=== PATIENT | female | born 1995 | race African-American/Black ===

== ENCOUNTER 2018-03-02 14:50 | Observation (INO) | payer OTHER ==
[~2018-03-02] VITALS: Ht 165.1 cm; Wt 83.0 kg
[~2018-03-02 14:50] MED LIST: FOLI1TAB19 PO; PREN-385 PO
[2018-03-02] MEDS ORDERED: TERBUTALINE 1 MG/ML VIAL SUBQ ONE (15:25)
[2018-03-02 15:31] VITALS: BP 119/77
[2018-03-02] MEDS ORDERED: TERBUTALINE 1 MG/ML VIAL SUBQ SCH (17:20)
[2018-03-02] MEDS ORDERED: LACTATED RINGERS 1,000 ML IV SCH (17:25)
[2018-03-02] MEDS ORDERED: BETAMETH ACET/BETAMETH NA PH 30 MG/5 ML VIAL IM ONE (17:56)
[2018-03-02] MEDS ORDERED: TERBUTALINE 2.5 MG TAB ONE (20:55)
[2018-03-02] MEDS ORDERED: TERBUTALINE 2.5 MG TAB PO SCH (21:00)
[2018-03-02] MEDS ORDERED: BETAMETH ACET/BETAMETH NA PH 30 MG/5 ML VIAL IM SCH (21:00)
[2018-03-02] MEDS ORDERED: INFLUENZA VIRUS VACCINE QUAD 0.5 ML SYR IMVAC PRN (22:00)
[2018-03-03] MEDS ORDERED: TERBUTALINE 1 MG/ML VIAL SUBQ ONE (00:25)
== END 2018-03-03 01:10 | disposition left against medical advice (07) ==
LOC: MLD 14:50
PROVIDERS: ADMIT Obstetrics & Gynecology; ATTEND Obstetrics & Gynecology
DX: O26.893 Other specified pregnancy related conditions, third trimester (principal); R10.9 Unspecified abdominal pain; O47.03 False labor before 37 completed weeks of gestation, third trimester; Z3A.35 35 weeks gestation of pregnancy
CPT/HCPCS: 36415; 51702; 76805; 81000; 85379; 96372; G0378; J0702; J3105; J7120; Q0092

== ENCOUNTER 2018-10-23 14:15 | Emergency (ER) | payer OTHER ==
[~2018-10-23] VITALS: Ht 162.6 cm; Wt 77.1 kg
[2018-10-23 14:16] VITALS: BP 121/62
--- NOTE | 2018-10-23 15:00 | NUR ---
PT PRESENTS TO ED WITH C/O VAGINAL BLEEDING; REPORTS HAVING AN IN JUNE AND UNCONTROLLED BLEEDING SINCE THEN. +NAUSEA, +BLURRY VISION, AND +DIZZINESS. DENIES VOMITING, DIARRHEA OR FEVER. MED HX: UMBILICAL HERNIA.
--- NOTE | 2018-10-23 15:10 | NUR ---
DR TAYLOR AT BEDSIDE EVALUATING PT.
[2018-10-23] MEDS ORDERED: IBUPROFEN 600 MG TAB PO ONE (15:20)
[2018-10-23] MEDS ORDERED: METOCLOPRAMIDE 10 MG/2 ML INJ VIAL IM ONE (15:20)
--- NOTE | 2018-10-23 15:39 | NUR ---
ULTRASOUND AT BEDSIDE
--- NOTE | 2018-10-23 15:50 | NUR ---
LAB AT BEDSIDE
--- NOTE | 2018-10-23 15:59 | NUR ---
PT REFUSED MEDICATION REGLAN; DR TAYLOR INFORMED.
[2018-10-23 16:01] LABS: BASOPHILS % (AUTO) 0.2 % (0.0-2.0); EOSINOPHILS # (AUTO) 0.1 K/uL (0-0.4); EOSINOPHILS % (AUTO) 1.6 % (0.0-4.0); HEMATOCRIT 39.8 % (36-48); HEMOGLOBIN 13.3 g/dL (12.0-16.0); LYMPHOCYTES # (AUTO) 1.3 K/uL (2.5-16.5); LYMPHOCYTES % (AUTO) 21.8 % (20.5-51.1); MEAN CORPUSCULAR HEMOGLOBIN 30 pg (27-31); MEAN CORPUSCULAR HGB CONC 33 g/dL (33-37); MEAN CORPUSCULAR VOLUME 89.4 fL (80-94); MONOCYTES # (AUTO) 0.3 K/uL (0.8-1.0); MONOCYTES % (AUTO) 5.1 % (1.7-9.3); NEUTROPHILS # (AUTO) 4.3 K/uL (1.8-7.7); NEUTROPHILS % (AUTO) 71.3 % (42.2-75.2); PLATELET COUNT (AUTO) 234 K/uL (140-450); RED BLOOD CELL COUNT(AUTO) 4.45 MIL/uL (4.20-5.40); RED CELL DISTRIBUTION WIDTH 12.7 % (11.6-13.7)
[2018-10-23 16:15] LABS: ALBUMIN 4.3 g/dL (3.4-5.0); ANION GAP 9.4 (8-16); CARBON DIOXIDE 28.6 mmol/L (21-32); TOTAL BILIRUBIN 0.8 mg/dL (0.0-1.0)
[2018-10-23 17:31] VITALS: BP 119/61
--- NOTE | 2018-10-23 17:33 | NUR ---
Patient discharged with v/s stable. Written and verbal after care instructions given and explained. Patient alert, oriented and verbalized understanding of instructions. Ambulatory with steady gait. All questions addressed prior to discharge. ID band removed. Patient advised to follow up with PMD. Rx of PROVERA given. Patient educated on indication of medication including possible reaction and side effects. Opportunity to ask questions provided and answered.
== END 2018-10-23 17:33 | disposition home or self-care (01) ==
LOC: MED 14:15
DX: N93.9 Abnormal uterine and vaginal bleeding, unspecified (principal); R51 Headache; R07.9 Chest pain, unspecified; H53.8 Other visual disturbances; Z79.899 Other long term (current) drug therapy; Z98.890 Other specified postprocedural states
CPT/HCPCS: 36415; 76830; 80053; 81025; 85025; 93976; 99284; Q0092; J2765

== ENCOUNTER 2020-09-03 14:29 | Observation (INO) | payer OTHER, SELFPAY ==
[~2020-09-03] VITALS: Ht 162.6 cm; Wt 102.1 kg
[2020-09-03 15:41] VITALS: BP 121/66
== END 2020-09-03 20:20 | disposition home or self-care (01) ==
LOC: MLD 14:29
PROVIDERS: ADMIT Obstetrics & Gynecology; ATTEND Obstetrics & Gynecology
DX: O62.9 Abnormality of forces of labor, unspecified (principal); O99.891 Other specified diseases and conditions complicating pregnancy; H53.8 Other visual disturbances; O26.893 Other specified pregnancy related conditions, third trimester; R82.998 Other abnormal findings in urine; Z3A.37 37 weeks gestation of pregnancy
CPT/HCPCS: 76815; G0378

== ENCOUNTER 2020-09-04 02:37 | Inpatient (IN) | payer OTHER, SELFPAY ==
[~2020-09-04] VITALS: Ht 162.6 cm; Wt 102.1 kg
[2020-09-04] MEDS ORDERED: PROMETHAZINE 25 MG/ML VIAL IVP PRN (02:50)
[2020-09-04] MEDS ORDERED: LACTATED RINGERS 1,000 ML IV SCH (02:50)
[2020-09-04] MEDS ORDERED: METHYLERGONOVINE 0.2 MG/ML AMP IM PRN (02:50)
[2020-09-04] MEDS ORDERED: CARBOPROST 250 MCG/ML AMP IM PRN (02:50)
[2020-09-04] MEDS ORDERED: NALBUPHINE 10 MG/ML AMP ONE (03:15)
[2020-09-04] MEDS ORDERED: OXYTOCIN 20 UNITS in LACTATED RINGERS 1,000 ML IV SCH (03:30)
[2020-09-04] MEDS ORDERED: ONDANSETRON 4 MG/2 ML VIAL IVP PRN (03:30)
[2020-09-04] MEDS ORDERED: NALBUPHINE 10 MG/ML AMP IVP SCH (03:30)
[2020-09-04 03:36] LABS: BASOPHILS # (AUTO) 0.1 K/uL (0.00-0.22); BASOPHILS % (AUTO) 0.7 % (0.0-2.0); EOSINOPHILS # (AUTO) 0.1 K/uL (0-0.4); EOSINOPHILS % (AUTO) 0.6 % (0.0-4.0); HEMATOCRIT 36.2 % (36-48); HEMOGLOBIN 12.4 g/dL (12.0-16.0); LYMPHOCYTES # (AUTO) 2.2 K/uL (2.5-16.5); LYMPHOCYTES % (AUTO) 21.8 % (20.5-51.1); MEAN CORPUSCULAR HEMOGLOBIN 29 pg (27-31); MEAN CORPUSCULAR HGB CONC 34 g/dL (33-37); MEAN CORPUSCULAR VOLUME 84.4 fL (80-94); MONOCYTES # (AUTO) 0.7 K/uL (0.8-1.0); MONOCYTES % (AUTO) 6.7 % (1.7-9.3); NEUTROPHILS # (AUTO) 7.2 K/uL (1.8-7.7); NEUTROPHILS % (AUTO) 70.2 % (42.2-75.2); PLATELET COUNT (AUTO) 135 K/uL (140-450); RED BLOOD CELL COUNT(AUTO) 4.29 MIL/uL (4.20-5.40); RED CELL DISTRIBUTION WIDTH 15.3 % (11.6-13.7); WHITE BLOOD COUNT (AUTO) 10.2 K/uL (4.8-10.8)
[2020-09-04] MEDS ORDERED: LIDOCAINE MPF 2% 100 MG/5 ML VIAL INJ ONE (03:41)
[2020-09-04] MEDS ORDERED: OXYTOCIN 20 UNITS/LR PREMIX 1,000 ML IV ONE (03:43)
[2020-09-04] MEDS ORDERED: LIDOCAINE 1% 500 MG/50 ML VIAL ONE (03:45)
[2020-09-04 03:55] LABS: ALBUMIN 2.7 g/dL (3.4-5.0); ANION GAP 16.8 (8-16); CARBON DIOXIDE 19.9 mmol/L (21-32); CREATININE 0.9 mg/dL (0.6-1.3); POTASSIUM 3.7 mmol/L (3.5-5.1); TOTAL BILIRUBIN 0.4 mg/dL (0.0-1.0)
[2020-09-04] MEDS ORDERED: OXYTOCIN 10 UNITS/ML VIAL ONE ×2 (04:25→04:42)
[2020-09-04] MEDS ORDERED: MEASLES, MUMPS, AND RUBELLA 1 VIAL SQVAC ONE (04:55)
[2020-09-04] MEDS ORDERED: bisacodyL 5 MG TABEC PO PRN (04:55)
[2020-09-04] MEDS ORDERED: ACETAMINOPHEN 325 MG TAB PO PRN (04:55)
[2020-09-04 07:00] VITALS: BP 134/66
[2020-09-04 08:20] LABS: APPEARANCE,URINE CLEAR (CLEAR); BILIRUBIN,URINE NEGATIVE (NEGATIVE); BLOOD, URINE 3+ (NEGATIVE); COLOR,URINE DARK YELLOW (YELLOW); LEUKOCYTE ESTERASE ,URINE NEGATIVE (NEGATIVE); NITRITE, URINE NEGATIVE (NEGATIVE); UGLUCOSE NEGATIVE (NEGATIVE)
[2020-09-04 08:32] LABS: CALCIUM OXALATE CRYSTALS,UR 0-10 /HPF (None Seen); WBC,URINE 0-5 /HPF (0-5)
--- NOTE | 2020-09-04 09:01 | NUR ---
PATIENT HAS BEEN SCREENED AND CATEGORIZED LOW NUTRITION RISK. PATIENT WILL BE SEEN WITHIN 7 DAYS OF ADMISSION. 09/10/[address]
[2020-09-04] MEDS: IBUPROFEN 600 MG TAB PO PRN ×2 (11:02→19:48)
[2020-09-05] MEDS: IBUPROFEN 600 MG TAB PO PRN ×2 (05:20→15:11)
[2020-09-05 08:11] LABS: BASOPHILS % (AUTO) 0.2 % (0.0-2.0); EOSINOPHILS # (AUTO) 0.1 K/uL (0-0.4); EOSINOPHILS % (AUTO) 1.1 % (0.0-4.0); HEMATOCRIT 36.9 % (36-48); HEMOGLOBIN 12.3 g/dL (12.0-16.0); LYMPHOCYTES # (AUTO) 1.6 K/uL (2.5-16.5); LYMPHOCYTES % (AUTO) 19.4 % (20.5-51.1); MEAN CORPUSCULAR HEMOGLOBIN 29 pg (27-31); MEAN CORPUSCULAR HGB CONC 33 g/dL (33-37); MEAN CORPUSCULAR VOLUME 85.7 fL (80-94); MONOCYTES # (AUTO) 0.5 K/uL (0.8-1.0); MONOCYTES % (AUTO) 6.4 % (1.7-9.3); NEUTROPHILS # (AUTO) 6.1 K/uL (1.8-7.7); NEUTROPHILS % (AUTO) 72.9 % (42.2-75.2); PLATELET COUNT (AUTO) 117 K/uL (140-450); RED CELL DISTRIBUTION WIDTH 15.4 % (11.6-13.7); WHITE BLOOD COUNT (AUTO) 8.4 K/uL (4.8-10.8)
== END 2020-09-05 16:15 | disposition home or self-care (01) | DRG 560 ==
LOC: MLD 02:37 → OBSVTOIN 02:55 → MFCC 05:48
PROVIDERS: ADMIT Obstetrics & Gynecology; ATTEND Obstetrics & Gynecology
PROC: 10E0XZZ Delivery of Products of Conception, External Approach (ICD-10-PCS; principal; 2020-09-04)
PROC: 3E0234Z Introduction of Serum, Toxoid and Vaccine into Muscle, Percutaneous Approach (ICD-10-PCS; 2020-09-04)
PROC: 3E0134Z Introduction of Serum, Toxoid and Vaccine into Subcutaneous Tissue, Percutaneous Approach (ICD-10-PCS; 2020-09-04)
DX: O80 Encounter for full-term uncomplicated delivery (principal); Z20.822 Contact with and (suspected) exposure to COVID-19; Z37.0 Single live birth; Z3A.38 38 weeks gestation of pregnancy; Z23 Encounter for immunization
CPT/HCPCS: 36415; 51702; 59409; 80053; 81001; 85025; 86592; 86886; 86900; 86901; G0378; J2001; J2300; J2550; J2590

== ENCOUNTER 2023-09-05 08:39 | Emergency (ER) | payer OTHER ==
[~2023-09-05] VITALS: Ht 165.1 cm; Wt 83.6 kg
[2023-09-05 08:47] VITALS: BP 115/75; PULSE 68; RESP 18; TEMP 97.4; O2SAT 100
[2023-09-05] MEDS: KETOROLAC 30 MG/ML VIAL IM ONE (09:31)
[2023-09-05 09:47] LABS: APPEARANCE,URINE SL CLOUDY (CLEAR); BILIRUBIN,URINE NEGATIVE (NEGATIVE); BLOOD, URINE NEGATIVE (NEGATIVE); COLOR,URINE YELLOW (YELLOW); LEUKOCYTE ESTERASE ,URINE 2+ (NEGATIVE); NITRITE, URINE NEGATIVE (NEGATIVE); PROTEIN,URINE NEGATIVE (NEGATIVE); UGLUCOSE NEGATIVE (NEGATIVE)
[2023-09-05 10:20] LABS: RBC,URINE 0-5 /HPF (0-5); WBC,URINE 16-25 (MOD) /HPF (0-5)
[2023-09-05 10:21] LABS: BACTERIA,URINE >30 (MANY) /HPF (None Seen); SQUAMOUS EPITHELIAL CELL,UR >10 (MANY) /LPF (0-3 (FEW))
[2023-09-05] MEDS ORDERED: NITR100C7 PO (10:29)
[2023-09-05] MEDS ORDERED: NAPR-1704 PO (10:29)
[2023-09-05 10:38] VITALS: BP 118/75; PULSE 70; RESP 16; TEMP 98.1
[2023-09-05 11:40] VITALS: O2SAT 100
== END 2023-09-05 10:30 | disposition home or self-care (01) ==
LOC: MED 08:39
DX: N39.0 Urinary tract infection, site not specified (principal); Z79.1 Long term (current) use of non-steroidal anti-inflammatories (NSAID); Z79.899 Other long term (current) drug therapy
CPT/HCPCS: 81001; 81025; 87086; 99283

== ENCOUNTER 2023-09-13 09:11 | Emergency (ER) | payer OTHER ==
[~2023-09-13] VITALS: Ht 165.1 cm; Wt 77.1 kg
[~2023-09-13 09:11] MED LIST changes: +NAPR-1704 PO; +NITR100C7 PO
[2023-09-13 09:17] VITALS: BP 122/64; PULSE 67; RESP 18; TEMP 98.4; O2SAT 99
[2023-09-13 10:02] LABS: BASOPHILS % (AUTO) 0.4 % (0.0-2.0); EOSINOPHILS # (AUTO) 0.1 K/uL (0-0.4); EOSINOPHILS % (AUTO) 1.8 % (0.0-4.0); HEMOGLOBIN 13.7 g/dL (12.0-16.0); LYMPHOCYTES # (AUTO) 1.3 K/uL (2.5-16.5); LYMPHOCYTES % (AUTO) 27.3 % (20.5-51.1); MEAN CORPUSCULAR HEMOGLOBIN 31 pg (27-31); MEAN CORPUSCULAR HGB CONC 34 g/dL (33-37); MEAN CORPUSCULAR VOLUME 89.7 fL (80-94); MONOCYTES # (AUTO) 0.2 K/uL (0.8-1.0); MONOCYTES % (AUTO) 4.8 % (1.7-9.3); NEUTROPHILS # (AUTO) 3.2 K/uL (1.8-7.7); NEUTROPHILS % (AUTO) 65.7 % (42.2-75.2); PLATELET COUNT (AUTO) 232 K/uL (140-450); RED BLOOD CELL COUNT(AUTO) 4.46 MIL/uL (4.20-5.40); WHITE BLOOD COUNT (AUTO) 4.9 K/uL (4.8-10.8)
[2023-09-13 10:04] LABS: APPEARANCE,URINE CLEAR (CLEAR); BILIRUBIN,URINE NEGATIVE (NEGATIVE); BLOOD, URINE 3+ (NEGATIVE); COLOR,URINE YELLOW (YELLOW); LEUKOCYTE ESTERASE ,URINE TRACE (NEGATIVE); NITRITE, URINE POSITIVE (NEGATIVE); PH,URINE 5.5 (5.0-9.0); PROTEIN,URINE 2+ (NEGATIVE); UGLUCOSE NEGATIVE (NEGATIVE)
[2023-09-13 10:14] LABS: ANION GAP 13.4 (8-16); CALCIUM 8.4 mg/dL (8.5-10.1); CARBON DIOXIDE 25.7 mmol/L (21-32); POTASSIUM 4.1 mmol/L (3.5-5.1)
[2023-09-13] MEDS ORDERED: CEPH-588 PO (11:04)
[2023-09-13 11:08] LABS: BACTERIA,URINE 0-2 /HPF (None Seen); RBC,URINE >20 (MANY) /HPF (0-5); WBC,URINE 0-5 /HPF (0-5)
[2023-09-13 11:09] LABS: SQUAMOUS EPITHELIAL CELL,UR 0-3 (FEW) /LPF (0-3 (FEW))
[2023-09-13 11:15] VITALS: BP 129/84; PULSE 84; RESP 18; TEMP 98.4; O2SAT 99
== END 2023-09-13 11:15 | disposition home or self-care (01) ==
LOC: MED 09:11
DX: N39.0 Urinary tract infection, site not specified (principal); Z79.1 Long term (current) use of non-steroidal anti-inflammatories (NSAID); Z79.2 Long term (current) use of antibiotics; Z79.899 Other long term (current) drug therapy
CPT/HCPCS: 36415; 76856; 80048; 81001; 81025; 85025; 99284

== ENCOUNTER 2023-10-19 06:59 | Emergency (ER) | payer OTHER ==
[~2023-10-19] VITALS: Ht 165.1 cm; Wt 83.5 kg
[~2023-10-19 06:59] MED LIST changes: +CEPH-588 PO
[2023-10-19 07:01] VITALS: BP 117/61; PULSE 59; RESP 14; TEMP 97.7; O2SAT 99
--- NOTE | 2023-10-19 07:06 | NUR ---
C/O PALPITATIONS X 2 DAYS. ALSO C/O IRREGULAR VAGINAL BLEEDING FROM 10/02 TO 10/16, THINKS SHE POSSIBLY HAD A MISCARRIAGE. NO BLEEDING AT THIS TIME. RLQ PAIN 09/25. HAS NAUSEA, DENIES VOMITING AND DIARRHEA. HX: DENIES MEDS: DENIES
--- NOTE | 2023-10-19 07:10 | NUR ---
TAKEN TO BED 9. EMT BEDSIDE FOR EKG
[2023-10-19 07:49] LABS: APPEARANCE,URINE CLEAR (CLEAR); BILIRUBIN,URINE NEGATIVE (NEGATIVE); BLOOD, URINE NEGATIVE (NEGATIVE); COLOR,URINE YELLOW (YELLOW); LEUKOCYTE ESTERASE ,URINE NEGATIVE (NEGATIVE); NITRITE, URINE NEGATIVE (NEGATIVE); PROTEIN,URINE NEGATIVE (NEGATIVE); UGLUCOSE NEGATIVE (NEGATIVE)
[2023-10-19 08:20] VITALS: BP 120/71; PULSE 62; RESP 15; TEMP 97.7; O2SAT 97
--- NOTE | 2023-10-19 08:20 | NUR ---
Patient discharged with v/s stable. Written and verbal after care instructions given and explained. Patient verbalized understanding. Ambulatory with steady gait. All questions addressed prior to discharge. Advised to follow up with PMD.
== END 2023-10-19 08:20 | disposition home or self-care (01) ==
LOC: MED 06:59
DX: R00.2 Palpitations (principal); Z79.1 Long term (current) use of non-steroidal anti-inflammatories (NSAID); Z79.899 Other long term (current) drug therapy
CPT/HCPCS: 81003; 81025; 93005; 99284

== ENCOUNTER 2023-11-22 22:43 | Emergency (ER) | payer OTHER ==
[~2023-11-22] VITALS: Ht 157.5 cm; Wt 84.4 kg
[2023-11-22 22:53] VITALS: BP 134/79; PULSE 70; RESP 14; TEMP 97.2; O2SAT 99
[2023-11-22 23:12] LABS: APPEARANCE,URINE CLEAR (CLEAR); BILIRUBIN,URINE NEGATIVE (NEGATIVE); BLOOD, URINE NEGATIVE (NEGATIVE); COLOR,URINE YELLOW (YELLOW); LEUKOCYTE ESTERASE ,URINE TRACE (NEGATIVE); NITRITE, URINE NEGATIVE (NEGATIVE); PROTEIN,URINE NEGATIVE (NEGATIVE); UGLUCOSE NEGATIVE (NEGATIVE)
[2023-11-22] MEDS ORDERED: ALUMINUM HYD/MAG/SIMETHICONE 30 ML UDC ONE (23:14)
[2023-11-22] MEDS ORDERED: DICYCLOMINE HCL LIQUID 10 MG/5 ML UDC ONE (23:14)
[2023-11-22 23:19] LABS: BACTERIA,URINE 10-30 (MOD) /HPF (None Seen); MUCUS,URINE 1+ /LPF (None Seen); RBC,URINE 0-5 /HPF (0-5); SQUAMOUS EPITHELIAL CELL,UR 4-10 (MOD) /LPF (0-3 (FEW))
[2023-11-22] MEDS: ONDANSETRON 4 MG ODT PO ONE (23:19)
[2023-11-22] MEDS: DICYCLOMINE HCL LIQUID 20 MG, ALUMINUM HYD/MAG/SIMETHICONE 30 ML, LIDOCAINE VISCOUS 2% ... PO ONE (23:19)
[2023-11-22] MEDS ORDERED: ONDA-188 PO (23:48)
[2023-11-22] MEDS ORDERED: MAG-27 PO (23:48)
[2023-11-22] MEDS ORDERED: FAMO-90 PO (23:48)
[2023-11-22] MEDS ORDERED: NITR100C7 PO (23:48)
== END 2023-11-22 23:53 | disposition home or self-care (01) ==
LOC: MED 22:43
DX: N39.0 Urinary tract infection, site not specified (principal); Z79.899 Other long term (current) drug therapy
CPT/HCPCS: 81001; 81025; 87086; 99284; Q0162

== ENCOUNTER 2023-12-31 23:24 | Emergency (ER) | payer OTHER ==
[~2023-12-31] VITALS: Ht 165.1 cm; Wt 83.5 kg
[~2023-12-31 23:24] MED LIST changes: +FAMO-90 PO; +MAG-27 PO; +ONDA-188 PO
[2023-12-31 23:31] VITALS: BP 113/78; PULSE 76; RESP 18; TEMP 97.5; O2SAT 100
[2023-12-31] MEDS ORDERED: LIDO100S PO (23:57)
[2023-12-31] MEDS ORDERED: IBUP-2213 PO (23:57)
[2024-01-01] MEDS ORDERED: OFLO5SOL27 BOTH EARS (00:11)
[2024-01-01 00:32] VITALS: BP 113/78; PULSE 76; RESP 18; TEMP 97.5; O2SAT 100
== END 2024-01-01 00:25 | disposition home or self-care (01) ==
LOC: MED 23:24
DX: H60.93 Unspecified otitis externa, bilateral (principal); B37.0 Candidal stomatitis; K13.79 Other lesions of oral mucosa; Z98.890 Other specified postprocedural states; Z79.899 Other long term (current) drug therapy
CPT/HCPCS: 36415; 87110; 87299; 87529; 99283